=== PATIENT | female | born 1960 | race Caucasian/White ===

== ENCOUNTER 2017-11-27 11:59 | Emergency (ER) | payer BC, OTHER ==
[2017-11-27 12:26] LABS: BASOPHILS % 0.7 (0.0-1.5); EOSINOPHILS % 3.3 % (0.0-6.8); MEAN CORPUSCULAR HEMOGLOBIN 32.5 pg (28.0-34.0); MEAN CORPUSCULAR VOLUME 95.6 fl (80.0-100.0); NEUTROPHILS # 1.9 # k/uL (1.4-7.7)
--- NOTE | 2017-11-27 12:27 | ED Physician Documentation ---
General Adult - HISTORIAN Historian: patient - HPI Stated Complaint: arms tingling Chief Complaint: General Adult Additional Information: Had cigarette and walked to gravel pile in yard yesterday morning and became very dizzy. Dizziness lasted intermittently till today. Moving gravel later and arms began to tingle. This has been intermittent since. She had a pain in her back by shoulder blade that began after moving rock. Pain is both aching and stabbing at times. and not changed by movement or cough. said to have been doing the heavy rock lifting while pt was preparing the ground. On keto diet for a month and yesterday was her cheat day; the food made her feel awful, she says. Dizziness began before meal of hamburger and onion rings. Nauseated at times. No other modifying factors or associated events. - ROS CONST: no problems - PAST HX Past History: hypertension, other (5-6 months of dizziness 15 years ago. ) Allergies/Adverse Reactions: Allergies Allergy/AdvReac Type Severity Reaction Status Date / Time Sulfa (Sulfonamide Allergy Unknown Verified 11/27/17 12:25 Antibiotics) latex Allergy Verified 11/27/17 12:25 codeine [Codeine] AdvReac Unknown Nausea/Vomi Verified 11/27/17 12:25 ting Home Medications: Ambulatory Orders Medication Instructions Recorded Methylphenidate HCl 54 mg PO DAILY 11/27/17 [Methylphenidate ER] Venlafaxine HCl [Venlafaxine HCl 150 mg PO DAILY 11/27/17 ER] amLODIPine BESYLATE [Norvasc] 5 mg PO 0900 11/27/17 - SOCIAL HX Smoking History: cigarettes Alcohol Use: other (5/day) Drug Use: none - FAMILY HX Family History: No - VITAL SIGNS Vital Signs: Vital Signs Temp Pulse Resp BP Pulse Ox 124/87 07/12/15 09:07 - REVIEWED ASSESSMENTS Nursing Assessment Reviewed: Yes Vitals Reviewed: Yes Progress - Progress Progress: EKG: sinus rhythm, 61 BPM, no ischemic changes. Report Submission Date: Nov 27, 2017 12:47:39 PM CDT Patient Study Name: YOLIS SCOTT Date: Nov 27, 2017 12:25:25 PM CDT Modality Type: DX Gender: F Description: CHEST : 58 Institution: [facility] Physician: DALLAS ERAZO ER PA and lateral chest Clinical history: Back pain and lightheadedness. Findings: Examination of the chest in PA and lateral views with no prior films for comparison demonstrates the lungs to be clear. Cardiovascular and mediastinal silhouettes are within normal limits. Monitor leads superimpose the chest. Impression: 1. No active disease. Electronically signed on Nov 27, 2017 12:47:39 PM CDT by: Leo Aragon Labs reassuring, including serial Trop I's, EKG, so cardiology not involved. ED Results Lab/Radiology - Orders Orders: ED Orders Category Date Time Status Place IV Lock 1T Care 11/27/17 12:10 Active CHEST 2VIEW [RAD] Stat Exams 11/27/17 Ordered CBC/PLATELET/DIFF Routine Lab 11/27/17 Received CMP Routine Lab 11/27/17 Received TROPONIN I (cTnI) Stat Lab 11/27/17 Received UA [URINALYSIS] Routine Lab 11/27/17 Received EKG WITH COMPARISON Stat Ther 11/27/17 Ordered General Adult Physical Exam - PHYSICAL EXAM GENERAL APPEARANCE: mild distress EENT: eye inspection normal, ENT inspection normal, pharynx normal, other (no nystagmus) NECK: normal inspection, supple (non tender) RESPIRATORY: no resp distress, breath sounds normal CVS: reg rate & rhythm, heart sounds normal, no murmur ABDOMEN: soft, normal bowel sounds, no distension, non-tender BACK: normal inspection, no CVA tenderness, other (palpable muscle spasm left thoracic and proximal lumbar paraspinous areas, tender to palpation proximally) SKIN: warm/dry EXTREMITIES: normal range of motion (gait and stance), no evidence of injury NEURO: CN's nml as tested, motor nml, sensation nml, cognition normal Discharge Clincal Impression: Muscle strain Referrals: Amy Shah MD [Primary Care Provider] - 2 Days Additional Instructions: Cold to the sore area for 20 minutes at a time, several times a day. You can take your flexeril, 10 mg, at bedtime. Follow up with your provider as needed, or return to the ER if your condition worsens. Condition: Good Disposition: 01 HOME, SELF-CARE Decision to Admit: NO Decision Time: 14:45
[2017-11-27 12:43] LABS: eGFR (African) > 60; eGFR (Non-African) > 60
[2017-11-27] MEDS ORDERED: CYCLOBENZAPRINE HCL 5 MG TABLET PO ONE (13:08)
[2017-11-27] MEDS ORDERED: KETOROLAC TROMETHAMINE 30 MG/1ML VIAL IVP ONE (14:18)
[2017-11-27] MEDS ORDERED: KETOROLAC TROMETHAMINE 30 MG/1ML VIAL ONE (14:18)
[2017-11-27] MEDS ORDERED: ORPHENADRINE CITRATE 60 MG/2ML IV ONE (14:18)
[2017-11-27 14:58] VITALS: BP 120/68
--- NOTE | 2017-11-27 15:56 | Diagnostic Imaging Report ---
DALLAS ERAZO [facility] [address] [facility] [address] [place] [address]. [id number] Report Submission Date: Nov 27, 2017 12:47:39 PM CDT Patient Study Name: YOLIS SCOTT Date: Nov 27, 2017 12:25:25 PM CDT Modality Type: DX Gender: F Description: CHEST : 58 Institution: [facility] Physician: DALLAS ERAZO PA and lateral chest Clinical history: Back pain and lightheadedness. Findings: Examination of the chest in PA and lateral views with no prior films for comparison demonstrates the lungs to be clear. Cardiovascular and mediastinal silhouettes are within normal limits. Monitor leads superimpose the chest. Impression: 1. No active disease. Electronically signed on Nov 27, 2017 12:47:39 PM CDT by: Leo TANNER
== END 2017-11-27 14:56 | disposition home or self-care (01) ==
LOC: ED 11:59
DX: S39.012A Strain of muscle, fascia and tendon of lower back, initial encounter (principal); X58.XXXA Exposure to other specified factors, initial encounter; Y92.017 Garden or yard in single-family (private) house as the place of occurrence of the external cause; Y93.H2 Activity, gardening and landscaping; Y99.9 Unspecified external cause status
CPT/HCPCS: 71046; 80053; 81002; 84484; 85025; 93005; J1885; J2360; 96374; 96375; 99284; S1016

== ENCOUNTER 2018-04-18 10:24 | Outpatient (CLI) | payer BC, OTHER ==
[2018-04-18 11:22] LABS: BASOPHILS % 0.5 (0.0-1.5); EOSINOPHILS % 2.3 % (0.0-6.8); MEAN CORPUSCULAR HEMOGLOBIN 29.9 pg (28.0-34.0); MONOCYTES % 8.6 % (0.0-11.0); NEUTROPHILS # 5.4 # k/uL (1.4-7.7)
[2018-04-18 11:27] LABS: eGFR (Non-African) > 60
--- NOTE | 2018-04-18 14:35 | Diagnostic Imaging Report ---
[facility] [address] [facility] [address] [address] Report Submission Date: Apr 18, 2018 11:09:40 AM STAMP PRESSER Patient Study Name: YOLIS SCOTT Date: Apr 18, 2018 10:23:46 AM STAMP PRESSER Modality Type: DX Gender: F Description: CHEST : 58 Institution: [facility] Physician: [facility] Examination: PA and lateral chest. History: Evaluate lung adler. Wall comparison exam: 27 November 2017 Findings: PA and lateral views of the chest demonstrates a normal cardiac and mediastinal silhouette. Tortuous aorta. No focal infiltrate. No blunting of the costophrenic margins. Osseous structures are appropriate for age. Impression: No acute pulmonary process. Electronically signed on Apr 18, 2018 11:09:40 AM STAMP PRESSER by: Nick TANNER
== END 2018-04-18 11:30 ==
LOC: LAB 10:24
PROVIDERS: ATTEND Family Medicine
DX: J40 Bronchitis, not specified as acute or chronic (principal)
CPT/HCPCS: 71046; 80053; 85025